=== PATIENT | male | born 1985 | race Hispanic/Latino ===

== ENCOUNTER 2019-04-25 11:00 | Observation (INO) | payer OTHER ==
[~2019-04-25] VITALS: Ht 186.7 cm; Wt 103.9 kg
[2019-05-16 12:19] VITALS: BP 134/76
[2019-05-16] MEDS ORDERED: PARO40TA72 PO (12:35)
[2019-05-16] MEDS ORDERED: PRAZ2CAP2 PO (12:35)
[2019-05-16] MEDS ORDERED: MELO-108 PO (12:35)
[2019-05-16] MEDS ORDERED: CETI10TA57 PO (12:35)
[2019-05-16] MEDS: CEFAZOLIN SODIUM 1 GM VIAL IVP SCH (13:00)
[2019-05-17] VITALS (20 sets, daily range): BP systolic 96–129; BP diastolic 52–87
[2019-05-17] MEDS ORDERED: LACTATED RINGERS 1000ML 1,000 ML IV ONE (11:42)
[2019-05-17] MEDS ORDERED: LIDOCAINE PF 2% 5ML ABBOJECT ONE (12:45)
[2019-05-17] MEDS ORDERED: SUCCINYLCHOLINE 200MG/10ML SYR ONE (12:45)
[2019-05-17] MEDS ORDERED: PROPOFOL 10 MG/ML 20ML VIAL IV ONE (12:46)
[2019-05-17] MEDS ORDERED: ONDANSETRON HCL 4 MG/2 ML VIAL ONE (12:46)
[2019-05-17] MEDS ORDERED: ROCURONIUM 10MG/1ML SYR 10 MG/ML ML ONE (12:46)
[2019-05-17] MEDS ORDERED: NEOSTIGMINE 5MG/5ML SYR IV ONE (12:46)
[2019-05-17] MEDS ORDERED: MIDAZOLAM HCL 1 MG/ML 2ML VIAL ONE (12:46)
[2019-05-17] MEDS ORDERED: DEXAMETHASONE SOD PHOSPHATE 10MG/ML 1ML VIAL ONE (12:46)
[2019-05-17] MEDS ORDERED: GLYCOPYRROLATE 1 MG/5 ML SYRINGE ONE (12:46)
[2019-05-17] MEDS ORDERED: FENTANYL CITRATE PF 50 MCG/1 ML 2ML VIAL ONE ×2 (12:47→13:44)
[2019-05-17] MEDS ORDERED: ROPIVACAINE 0.5% 5MG/ML 30ML IJ ONE (12:49)
[2019-05-17] MEDS: CEFAZOLIN SODIUM 1 GM VIAL IVP SCH ×2 (13:00→13:30)
[2019-05-17] MEDS ORDERED: METOCLOPRAMIDE 10 MG/2 ML VIAL ONE (14:00)
[2019-05-17] MEDS ORDERED: LIDOCAINE HCL 4% LTA SOL 4 ML VIAL ONE (14:00)
[2019-05-17 16:35] LABS: HEMATOCRIT 41.8 % (42-54)
[2019-05-17 18:05] LABS: HEMATOCRIT 41.1 % (42-54)
[2019-05-17] MEDS ORDERED: DEXTROSE 5%-LACTATED RINGERS 1,000 ML IV ONE (18:47)
[2019-05-17] MEDS ORDERED: ONDANSETRON HCL 4 MG/2 ML VIAL IVP PRN (19:00)
[2019-05-17] MEDS ORDERED: MORPHINE SULFATE 4 MG/1ML SYG IV PRN (19:00)
[2019-05-17] MEDS ORDERED: MAGNESIUM HYDROXIDE 30 ML/UDCUP PO PRN (19:30)
[2019-05-17] MEDS ORDERED: PROMETHAZINE HCL 25 MG/ML 1ML AMPULE IM PRN (19:30)
[2019-05-17] MEDS ORDERED: MORPHINE SULFATE 10 MG/ML 1ML SYG IM PRN (19:30)
[2019-05-17] MEDS ORDERED: ACETAMINOPHEN 325 MG TAB PO PRN (19:30)
[2019-05-17] MEDS ORDERED: DEXTROSE 5%-LACTATED RINGERS 1,000 ML IV SCH (19:30)
[2019-05-17] MEDS ORDERED: BISACODYL 10 MG SUPP.RECT RC PRN (19:30)
[2019-05-17] MEDS ORDERED: MORPHINE SULFATE 10 MG/ML 1ML VIAL IM PRN (19:45)
[2019-05-17] MEDS: CEFAZOLIN 3GM /D5W 100ML 100 ML IV SCH (20:34)
[2019-05-18 00:27] LABS: HEMATOCRIT 42.6 % (42-54)
[2019-05-18 00:41] VITALS: BP 128/70
[2019-05-18] MEDS: CEFAZOLIN 3GM /D5W 100ML 100 ML IV SCH ×2 (04:19→12:40)
[2019-05-18 04:38] VITALS: BP 115/61
[2019-05-18 06:18] LABS: BASOPHILS % (AUTO) 0.4 % (0.0-5.0); EOSINOPHILS % (AUTO) 0.2 % (0.0-8.0); HEMATOCRIT 42.1 % (42-54); LYMPHOCYTES % (AUTO) 7.8 % (21.0-51.0); MEAN CORPUSCULAR HEMOGLOBIN 29.6 pg (27.0-33.0); MEAN CORPUSCULAR HGB CONC 33.9 g/dL (32.0-36.0); MEAN CORPUSCULAR VOLUME 87.5 fL (79-99); MONOCYTES % (AUTO) 5.5 % (3.0-13.0); NEUTROPHILS % (AUTO) 86.1 % (40.0-77.0); PLATELET COUNT (AUTO) 199 K/uL (130-400); RED BLOOD CELL COUNT(AUTO) 4.81 MIL/uL (4.50-6.20); RED CELL DISTRIBUTION WIDTH 13.6 % (11.0-15.5); WHITE BLOOD COUNT (AUTO) 17.7 K/uL (4.8-10.8)
[2019-05-18 06:38] LABS: CREATININE 1.3 mg/dL (0.5-1.5); POTASSIUM 3.8 mmol/L (3.5-5.1)
[2019-05-18 08:00] VITALS: BP 115/70
--- NOTE | 2019-05-18 08:00 | NUR ---
Patient sitting up to the bedside chair with abductor pillow in place which was repositioned. Stated his numbness is less to his fingers and he is moving them without difficulty
[2019-05-18 11:00] VITALS: BP 133/92
--- NOTE | 2019-05-18 11:00 | NUR ---
CM NOTE PT HERE FOR SCHEDULED OUT PT PROCEDURE. NO TRIGGERS TO CM, NO CONCERNS VOICED. DETAILED CM ASSESSMENT DEFERRED. PT TO BE DCD HOME TO FOLLOW CLOSELY W SURGEON FOR THERAPY Addendum: 05/18/19 at 1924 by JULIA CONTRERAS RN CM Amended: Links added.
[2019-05-18] MEDS ORDERED: KETO15I IM (12:34)
[2019-05-18] MEDS ORDERED: ACET-2743 PO (12:34)
[2019-05-18] MEDS ORDERED: KETOROLAC TROMETHAMINE 15MG/ML IV SCH (13:15)
--- NOTE | 2019-05-18 13:30 | NUR ---
Dressing change performed to right shoulder, sutures intact. No bleeding from incision. Abduction pillow in place
[2019-05-18] MEDS ORDERED: KETO10TA2 PO (15:33)
--- NOTE | 2019-05-18 16:00 | NUR ---
Discharge instructions on new prescriptions and follow up appointment given to pt and his .
[2019-05-18] MEDS ORDERED: **HM** PRAZOSIN 2MG PO SCH (21:00)
[2019-05-18] MEDS ORDERED: PAROXETINE HCL 20 MG TABLET PO SCH (21:00)
[2019-05-19] MEDS ORDERED: CETIRIZINE HCL 5 MG TABLET PO SCH (09:00)
== END 2019-05-18 16:00 | disposition home or self-care (01) ==
LOC: EDSTATUS 11:30 → DAHIP 05-17 10:47 → 4CH 05-17 16:27
DX: M75.41 Impingement syndrome of right shoulder (principal); M75.101 Unspecified rotator cuff tear or rupture of right shoulder, not specified as traumatic; M75.00 Adhesive capsulitis of unspecified shoulder; K58.9 Irritable bowel syndrome, unspecified; G47.419 Narcolepsy without cataplexy; G43.909 Migraine, unspecified, not intractable, without status migrainosus; G47.30 Sleep apnea, unspecified; R32 Unspecified urinary incontinence; K21.9 Gastro-esophageal reflux disease without esophagitis; F17.200 Nicotine dependence, unspecified, uncomplicated; F98.8 Other specified behavioral and emotional disorders with onset usually occurring in childhood and adolescence; Z79.899 Other long term (current) drug therapy
CPT/HCPCS: 23130; 23412; 36415 ×3; 80048; 84520; 85014 ×3; 85018 ×3; 85025; 88304; 88311; 94760; 96365; 96366; 96375; 97039; 97116 ×2; 97161; A4215; A4221; A4222; A4223; A4452; A4606; A4663; A4930 ×2; A5120; A6223; A6260; C1713; G0378 ×30; G8978; G8979; G8980; G8981; G8982; G8983; J0330; J0690 ×3; J1100; J1885; J2001; J2250; J2270; J2405; J2704; J2710; J2765; J2795; J3010 ×2; J3490 ×2; J7030; J7120